=== PATIENT | male | born 1980 | race Caucasian/White ===

== ENCOUNTER 2017-10-25 21:20 | Emergency (ER) | payer OTHER ==
[~2017-10-25] VITALS: Ht 170.2 cm; Wt 104.3 kg
[2017-10-25] MEDS ORDERED: CLEOCIN HCL300 MG PO (22:26)
[2017-10-25] MEDS ORDERED: MEDROLDOSEPACK PO (22:26)
[2017-10-25 22:39] VITALS: BP 149/88
== END 2017-10-25 22:39 | disposition home or self-care (01) ==
LOC: M.ERS 21:20
DX: J03.90 Acute tonsillitis, unspecified (principal); J45.909 Unspecified asthma, uncomplicated; F17.210 Nicotine dependence, cigarettes, uncomplicated